=== PATIENT | male | born 1990 ===

== ENCOUNTER 2020-04-16 17:03 | Emergency (ER) | payer SELFPAY ==
[~2020-04-16] VITALS: Ht 180.3 cm; Wt 90.0 kg
[2020-04-16 17:14] VITALS: BP 160/76
--- NOTE | 2020-04-16 18:28 | NUR ---
PER REGISTRATION, MAURISIO, DAY SHIFT RESIDENTIAL [employer] TECHNICIAN, PAOLO, TOLD HER THAT THIS PATIENT LEFT THE LOBBY.
== END 2020-04-16 18:30 | disposition left against medical advice (07) ==
LOC: ER 17:04
DX: M79.89 Other specified soft tissue disorders (principal); Z53.21 Procedure and treatment not carried out due to patient leaving prior to being seen by health care provider